=== PATIENT | male | born 1990 | race Caucasian/White ===

== ENCOUNTER 2021-08-02 11:04 | Inpatient (IN) | payer BC ==
[~2021-08-02] VITALS: Ht 177.8 cm; Wt 107.5 kg
[2021-08-02 11:10] VITALS: BP 167/86
[2021-08-02 11:32] LABS: BASO % 0.2 % (0.0-1.0); EOS % 0.1 % (1.0-4.0); HEMATOCRIT 46.4 % (42.0-52.0); LYMPH # 1.2 10*3/uL (1.3-4.4); LYMPH % 14.8 % (27.0-41.0); MEAN CELL VOLUME 79.9 fl (80.0-94.0); MEAN CORPUSCULAR HGB 26.2 pg (27.0-31.0); MEAN CORPUSCULAR HGB CONC 32.8 g/dl (33.0-37.0); MEAN PLATELET VOLUME 9.8 fl (9.6-12.3); MONO # 0.4 10*3/uL (0.1-1.0); NEUT # 6.5 10*3/uL (2.3-7.9); NEUT % 79.7 % (47.0-73.0); PLATELET COUNT AUTOMATED 347 10*3/uL (130-400); RED BLOOD COUNT 5.81 10*6/uL (4.50-5.90); RED CELL DISTRI WIDTH 12.8 % (0-14.5); WHITE BLOOD COUNT 8.1 10*3/uL (4.8-10.8)
[2021-08-02 11:43] LABS: ACT PARTIAL THROMBO TIME 31.9 SECONDS (20.0-32.1)
[2021-08-02 11:47] LABS: ALKALINE PHOSPHATASE 100 U/L (45-117); BUN 14 mg/dl (7-24); CHLORIDE 105 mmol/L (98-107); CREATININE 1.25 mg/dL (0.70-1.30); POTASSIUM 3.3 mmol/L (3.5-5.1); SGOT/AST 20 IU/L (3-35); SGPT/ALT 44 U/L (12-78); SODIUM 142 mmol/L (136-145)
[2021-08-02 11:50] LABS: ETHYL ALCOHOL < 3.0 mg/dl (<3)
[2021-08-02 12:01] LABS: BILIRUBIN Negative (Negative); BLOOD Negative (Negative); CLARITY Clear (Clear); COLOR Yellow (Yellow); GLUCOSE Negative (Negative); KETONE Negative (Negative); LEUKO ESTERASE Negative (Negative); NITRITE Negative (Negative); UROBILINOGEN 0.2 E.U./dl (0.0-1.0)
[2021-08-02 12:12] LABS: URINE AMPHETAMINES < 1000 (1000ng/ml); URINE BARBITURATES < 200 (200ng/ml); URINE BENZODIAZEPINES < 200 (200ng/ml); URINE CANNABINOIDS (THC) < 50 (50ng/ml); URINE COCAINE < 300 (300ng/ml); URINE METHADONE < 300 (300ng/ml); URINE OPIATES < 300 (300ng/ml)
[2021-08-02 12:20] LABS: URINE PHENCYCLIDINE < 25 (25ng/ml)
[2021-08-02 12:36] LABS: EPITHELIAL CELLS 0-2
[2021-08-02 12:37] LABS: MUCOUS TRACE
[2021-08-02 14:28] VITALS: BP 135/78
[2021-08-02 14:51] VITALS: BP 155/77
[2021-08-02 16:00] VITALS: BP 155/77
[2021-08-02 20:00] VITALS: BP 132/79
== END 2021-08-03 07:53 | disposition left against medical advice (07) | DRG 894 ==
LOC: ED 11:04 → EDHOLD 12:57 → 4E 14:18
PROVIDERS: Nurse Practitioner Family; ADMIT Emergency Medicine; ATTEND Emergency Medicine
DX: F11.90 Opioid use, unspecified, uncomplicated (principal); E87.6 Hypokalemia; F13.10 Sedative, hypnotic or anxiolytic abuse, uncomplicated; F14.10 Cocaine abuse, uncomplicated